=== PATIENT | male | born 2005 | race Caucasian/White ===

== ENCOUNTER 2024-04-20 18:39 | Outpatient (CLI) | payer OTHER, SELFPAY | END 2024-04-20 18:40 | disposition home or self-care (01) | LOC: AMB 05-04 13:14 | PROVIDERS: Visit Provider Emergency Medicine Emergency Medical Services | DX: S09.90XA Unspecified injury of head, initial encounter (principal); R41.82 Altered mental status, unspecified; V49.40XA Driver injured in collision with unspecified motor vehicles in traffic accident, initial encounter; Y92.410 Unspecified street and highway as the place of occurrence of the external cause | CPT/HCPCS: A0425; A0427 ==